=== PATIENT | female | born 1995 ===

== ENCOUNTER 2022-11-30 15:25 | Outpatient (AMB) | payer OTHER, SELFPAY ==
--- NOTE | 2022-11-30 16:15 | MHC.OFFWIV ---
Intake Vital Signs 11/30/22 16:21 Height 5 ft 1 in Weight 225 lb BMI 42.5 BP 122/74 Blood Pressure Location Rt brachial Position Sitting Pulse 78 Pulse Source Pulse Oximeter Temp 97.6 F Temp Source Temporal Artery Scan Pulse Oximetry (%) 97 Intake Visit Reasons: [employer]/Ear pain and headaches Intake Note: this whole weekend she had a pressureall over head headache and took medication then sharp pains in left ear then today she getting sharp pain in both ears Patient Tobacco Use Status: Former Tobacco user Allergies amoxicillin Allergy (Mild, Verified 11/30/22 16:29) Vomiting Medication List - Last Reconciled 11/30/22 by Ryan Bocanegra MD No Known Home Meds HPI [employer]/Ear pain and headaches HPI Details Patient presents for a sick visit. Reporting symptoms of sinus congestion, sore throat and difficulty swallowing. Low-grade fever. No family member is sick. No recent travel. Patient reports symptoms of malaise and fatigue. PFSH Social History Patient Tobacco Use Status: Former Tobacco user Physical Exam Vital Signs: Last Vital Signs Temp 97.6 F 11/30/22 16:21 Pulse 78 11/30/22 16:21 BP 122/74 11/30/22 16:21 Pulse Ox 97 11/30/22 16:21 BMI result Body Mass Index 42.5 Const General: cooperative and healthy appearing Nutritional Appearance: well nourished Orientation/consciousness: patient oriented x3 Limitations: no limitations HEENT Head: Yes normal to inspection Eyes General: appearance normal, both eyes and all related structures Neck Neck: Yes normal visual inspection Chest Chest palpation & inspection: normal palpation of entire chest wall Resp Effort & Inspection: normal respiratory effort Neuro General: patient oriented x3 Assessment & Plan Assessment & Plan (1) Upper respiratory tract infection: Code(s): J06.9 - Acute upper respiratory infection, unspecified Qualifiers: URI type: unspecified viral URI Qualified Code(s): J06.9 - Acute upper respiratory infection, unspecified Plan: Antibiotics ordered. Increase fluid intake. Tylenol for aches and pains. If symptoms worsen, follow-up here for a recheck. Coding Level of Care Code Est Pt Level 3 (42346) Diagnoses Viral upper respiratory tract infection J06.9 URI type: unspecified viral URI
[2022-11-30 16:21] VITALS: BP 122/74; PULSE 78; TEMP 36.4; O2SAT 97; BMI 42.5
== END 2022-11-30 17:15 | disposition home or self-care (01) ==
PROVIDERS: Visit Provider Internal Medicine
DX: J06.9 Acute upper respiratory infection, unspecified (principal)
CPT/HCPCS: 99213

== ENCOUNTER 2023-03-09 08:20 | Outpatient (AMB) | payer OTHER, SELFPAY ==
--- NOTE | 2023-03-09 09:08 | MHC.OFFWIV ---
Intake Vital Signs 03/09/23 09:10 Height 5 ft 1 in Weight 224 lb BMI 42.3 BP 112/78 Blood Pressure Location Rt brachial Position Sitting Pulse 109 H Pulse Source Pulse Oximeter Temp 98.9 F Temp Source Temporal Artery Scan Pulse Oximetry (%) 99 Oxygen Delivery Method Room Air Intake Visit Reasons: EST/fever for past 3 days/ [phone] Intake Note: Pt is here c/o fever for past three days. Patient Tobacco Use Status: Former Tobacco user Allergies amoxicillin Allergy (Mild, Verified 03/09/23 09:08) Vomiting Do you need a note to return to daycare/school/sports/work: Yes HPI HPI Comments History of Present Illness Details This is a 27-year-old female with no stated past medical history presenting for evaluation of fevers that she has had for the past 3 days. Patient reports having a dry cough and daily over the past 2 weeks and on Wednesday she did welts body aches and subjective fevers. Patient has been taking NyQuil and DayQuil for relief of her symptoms and her last dose at DayQuil was this morning at 7:00 a.m.. Patient reports right ear pain but denies having any left ear pain, overt fevers, chills, sore throat, chest pain or shortness of breath. 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 COUNT INCLUDES THE [facility] Social History Patient Tobacco Use Status: Former Tobacco user Review of Systems Const Reports as per HPI, Denies chills, Reports fever(s) (subjective only), Denies night sweats and Reports other (generalized myalgias) Eyes Reports as per HPI ENT Reports no additional complaints and Reports otalgia (right) Card Reports as per HPI and Denies dyspnea Resp Reports as per HPI, Reports cough, Denies hemoptysis and Denies dyspnea Skin/Breast Reports as per HPI Endo Reports no additional complaints Physical Exam Vital Signs: Last Vital Signs Temp 98.9 F 03/09/23 09:10 Pulse 109 H 03/09/23 09:10 BP 112/78 03/09/23 09:10 Pulse Ox 99 03/09/23 09:10 Oxygen Delivery Method Room Air 03/09/23 09:10 BMI result Body Mass Index 42.3 Patient is afebrile. Const General: cooperative, healthy appearing, comfortable and no acute distress; No ill appearing Nutritional Appearance: average body habitus Orientation/consciousness: patient oriented x3 Limitations: no limitations HEENT Head: Yes normal to inspection Ears: hearing grossly normal bilaterally, external ears normal, TM's normal bilaterally and EAC's normal General nose exam: Normal external nose present Face and sinus: Yes normal facial exam and No sinus tenderness Mouth: Normal oral and palatal mucosa present Teeth and gingiva: dentition normal Throat: Yes posterior oropharynx normal and No postnasal drainage Eyes General: appearance normal, both eyes and all related structures Conjunctivae: conjunctivae normal Sclerae: sclerae normal Corneas: corneas normal Pupils: Equal, round and reactive pupils present Neck Lymphatic: no lymphadenopathy noted Resp Effort & Inspection: normal respiratory effort, able to speak in complete sentences, no audible wheezes, no cough and no respiratory distress Auscultation: clear to auscultation bilaterally Cardio Rate: regular rate Rhythm: regular rhythm Skin General skin exam: no rashes or lesions noted Neuro General: patient oriented x3 Cranial nerves: Yes Equal, round and reactive pupils present Psych Appearance: grossly normal Mental Status: mental status grossly normal Insight: Good insight present (Psych) Judgement: Good judgement present (Psych) Results Reviewed Results Reviewed: SARS panel positive for Influenza; Tamiflu will be sent to pharmacy. Assessment & Plan Assessment & Plan (1) Upper respiratory tract infection: Code(s): J06.9 - Acute upper respiratory infection, unspecified Qualifiers: URI type: unspecified viral URI Qualified Code(s): J06.9 - Acute upper respiratory infection, unspecified Plan: SARS respiratory panel ordered and pending. Tylenol and/or ibuprofen OTC prn myalgias and right ear pain. Increase clear fluids daily. Orders: Orders SARS-CoV2/FLU/RSV Today J06.9 - Acute upper respiratory infection, unspecified Medications: New oseltamivir (Tamiflu) 75 mg PO BID 10 caps 0RF 5 days Coding Level of Care Code New Pt Level 3 (38867) Diagnoses Viral upper respiratory tract infection J06.9 URI type: unspecified viral URI Time Spent (min) 20
[2023-03-09 09:10] VITALS: BP 112/78; PULSE 109; TEMP 37.2; O2SAT 99; BMI 42.3
== END 2023-03-09 09:49 | disposition home or self-care (01) ==
PROVIDERS: Visit Provider Physician Assistant
DX: J06.9 Acute upper respiratory infection, unspecified (principal)
CPT/HCPCS: 99203

== ENCOUNTER 2023-03-09 11:27 | Outpatient (REF) | payer OTHER, SELFPAY ==
[2023-03-09 12:58] LABS: Influenza A PCR POSITIVE (Negative); Influenza B PCR NEGATIVE (Negative); Resp Syncy Virus RNA Qual PCR NEGATIVE (Negative); SARS COV2 PCR INHOUSE NEGATIVE (Negative)
== END 2023-03-09 11:28 | disposition home or self-care (01) ==
LOC: HO.LNP 11:27
PROVIDERS: Visit Provider Physician Assistant
DX: Z11.52 Encounter for screening for COVID-19 (principal); J06.9 Acute upper respiratory infection, unspecified
CPT/HCPCS: 0241U

== ENCOUNTER 2023-04-14 09:03 | Outpatient (AMB) | payer OTHER, SELFPAY ==
--- NOTE | 2023-04-14 10:12 | AM.OFFWIN_ITS ---
Intake Vital Signs 04/14/23 10:13 Height 5 ft 1 in Weight 226 lb BMI 42.7 BP 118/72 Blood Pressure Location Lt brachial Position Sitting Pulse 74 Pulse Source Pulse Oximeter Temp 97.8 F Temp Source Oral Pulse Oximetry (%) 98 Intake Visit Reasons: EP Chest tightness Intake Note: pt is here for c.o chest tightness, patient had flu around leslie time and states yesterday she was feeling a tightness in her chest and wraps around her upper back. patient states shes been more stressed at work but unsure if its related. Patient Tobacco Use Status: Former Tobacco user Allergies amoxicillin Allergy (Mild, Verified 04/14/23 10:20) Vomiting Do you need a note to return to daycare/school/sports/work: Yes HPI HPI Comments History of Present Illness Details Here with tightness in anterior chest and in between scaps this started after having the flu around Xmas took 2 ASA 325mg in the AM and then a baby ASA at HS co worker told her to do this this did not help has been applying vicks - when applying, noticed it hurt to rub her chest wall - similar pain to what she is descirbing. admits her sx are better Not taking OCP, estrogen, travel, surgery, prolonged immobility, family hx of sudden cardiac . admits lots of coughing w/ the flu and a few days prior to onset of her sx today she had a coughing fit relative to smoking COUNT INCLUDES THE [facility] Social History Patient Tobacco Use Status: Former Tobacco user Review of Systems Const All systems reviewed & are unremarkable except as noted in HPI and below Physical Exam Vital Signs: Last Vital Signs Temp 97.8 F 04/14/23 10:13 Pulse 74 04/14/23 10:13 BP 118/72 04/14/23 10:13 Pulse Ox 98 04/14/23 10:13 BMI result Body Mass Index 42.7 Const Other: awake alert NAD skin PWD LS CTAB RRR + costochondral tenderness across anterior chest bilat and posterior trunk - reproducible chest pressure/pain that she described Assessment & Plan Assessment & Plan (1) Costochondritis, acute: Code(s): M94.0 - Chondrocostal junction syndrome [Tietze] Plan: . Plan reassured no more ASA or OTC NSAIDS Take meloxicam QD with food OK to take APAP PRN breakthrough pain Avoid coughing, straining Edu on reasons to seek addl care Medications: New meloxicam 7.5 mg PO DAILY 14 days 14 tabs 0RF Coding Level of Care Code Est Pt Level 3 (41922) Diagnoses Costochondritis, acute M94.0
[2023-04-14 10:13] VITALS: BP 118/72; PULSE 74; TEMP 36.6; O2SAT 98; BMI 42.7
== END 2023-04-14 10:30 | disposition home or self-care (01) ==
PROVIDERS: Visit Provider Nurse Practitioner Family
DX: M94.0 Chondrocostal junction syndrome [Tietze] (principal)
CPT/HCPCS: 99213